=== PATIENT | male | born 1975 | race Caucasian/White ===

== ENCOUNTER 2017-09-18 19:41 | Emergency (ER) | payer SELFPAY ==
[~2017-09-18] VITALS: Ht 190.5 cm; Wt 79.4 kg
--- NOTE | 2017-09-18 20:04 | ED Back Pain ---
General Stated Complaint: LOWER BACK PAIN Source of Information: Patient, Other Exam Limitations: No Limitations History of Present Illness Date Seen by Provider: Sep 18, 2017 Time Seen by Provider: 19:58 Initial Comments Patient presents to ER by private conveyance with his significant other and a chief complaint that he's been having some low back pain since starting a new job in the [employer]. He is picking up heavy trash bags more weighing from 20-50 pounds and this is what he thinks is aggravated his pain. He does not have any significant incident that caused his pain. He does have a history of chronic back pain. He used tramadol in the past for but his doctor will not see him until the eighth. Patient's been using ibuprofen 4-6 tablets every 8 hours. He does not use Tylenol because of his hepatitis C. He is not having any incontinence of his bowels or bladder, numbness, falls or other red flag signs. Constitutional: No chills, No diaphoresis, No fever, No malaise EENTM: No ear discharge, No hearing loss, No ear pain Respiratory: No cough, No dyspnea on exertion Cardiovascular: No chest pain, No edema Gastrointestinal: No abdominal pain, No constipation, No diarrhea, No nausea Genitourinary: No discharge, No dysuria Musculoskeletal: see HPI, back pain Past Zemjuse-Uywsbb-Jtolus Hx Patient Social History Alcohol Use: Denies Use Recreational Drug Use: No Smoking Status: Current Everyday Smoker Type Used: Cigarettes Recent Foreign Travel: No Contact w/Someone Who Travel: No Physical Exam Vital Signs Capillary Refill : General Appearance: No Apparent Distress, Thin HEENT: PERRL/EOMI, Pharynx Normal Neck: Full Range of Motion, Normal Inspection, Non Tender, Supple Cardiovascular: Regular Rate, Rhythm, No Edema, Normal Peripheral Pulses Respiratory: No Accessory Muscle Use, No Respiratory Distress Peripheral Pulses: 2+ Dorsalis Pedis (R), 2+ Left Dors-Pedis (L), 2+ Radial Pulses (R), 2+ Radial Pulses (L) Back: Normal Inspection, No CVA Tenderness, Vertebral Tenderness (Lumbar) Extremity: Normal Capillary Refill, Normal Inspection, Non Tender, No Calf Tenderness, No Pedal Edema Neurologic/Psychiatric: Alert, Oriented x3, No Motor/Sensory Deficits, Normal Mood/Affect, Other (Symmetrical bilateral patellar deep tendon reflexes.) Skin: Normal Color, Warm/Dry Progress/Results/Core Measures Progress Note : Time: 20:01 Progress Note Patient declined Norflex and ketorolac. We'll going to use on his own, back brace, icy hot, appropriate doses of Tylenol and Motrin. Okay to use Tylenol with his hepatitis C if he does not have a history of cirrhosis. Follow-up with his doctor on the eighth. Departure Impression Impression: Primary Impression: Lumbago Qualified Codes: M54.5 - Low back pain Disposition: HOME, SELF-CARE Condition: Stable Departure-Patient Inst. Decision time for Depature: 20:02 Referrals: NO,LOCAL PHYSICIAN (PCP/Family) Primary Care Physician Patient Instructions: Low Back Pain (DC) Add. Discharge Instructions: Drink plenty of fluids use stretching exercises and back strengthening exercises. Use Tylenol 1000 g every 8 hours as needed. Use Motrin 800 mg every 6 hours [id number]. If you prefer you can use Naprosyn 2 capsules twice a day instead of Motrin. If you're having back spasms you can take one tablet of the Flexeril every 8 hours by mouth for this may cause some drowsiness. gym supervisor the steroids and take one tablet twice a day for the next 5 days to help bring down the swelling and inflammation in your back. Use ice packs 20 minutes on your back for every 4 hours for the first couple days. After that heating pads will be very helpful. Obtain a back brace and wear this on days that it helps. If you're not seeing improvement see your primary care physician under scheduled appointment on the eighth to discuss physical therapy and other intervention and workup. Scripts Tramadol HCl (Tramadol HCl) 50 Mg Tablet 50 MG PO Q6H Y for PAIN, #20 TAB 0 Refills Prov: RICARDO APARICIO 09/18/17 Prednisone (Prednisone) 20 Mg Tab 20 MG PO BID for 5 Days, #10 TAB 0 Refills Prov: RICARDO APARICIO 09/18/17 Cyclobenzaprine HCl (Cyclobenzaprine HCl) 10 Mg Tablet 10 MG PO Q8H Y for SPASMS, #30 TAB 0 Refills Prov: RICARDO APARICIO 09/18/17 RICARDO APARICIO Sep 18, 2017 20:04
[2017-09-18] MEDS ORDERED: CYCL10TA9 PO (20:06)
[2017-09-18] MEDS ORDERED: TRAM50TA2 PO (20:06)
[2017-09-18] MEDS ORDERED: PRD20T PO (20:06)
[2017-09-18 20:16] VITALS: BP 113/68
== END 2017-09-18 20:16 | disposition home or self-care (01) ==
LOC: EDUNIT# 19:41 → ER 19:45
DX: M54.5 Low back pain (principal); B19.20 Unspecified viral hepatitis C without hepatic coma; F17.210 Nicotine dependence, cigarettes, uncomplicated
CPT/HCPCS: 99281

== ENCOUNTER 2018-06-04 18:03 | Emergency (ER) | payer SELFPAY ==
[~2018-06-04] VITALS: Ht 190.5 cm; Wt 79.4 kg
[~2018-06-04 18:03] MED LIST: CYCL10TA9 PO; PRD20T PO; TRAM50TA2 PO
--- NOTE | 2018-06-04 18:45 | ED Fall/Injury ---
General Chief Complaint: Lower Extremity Stated Complaint: R SIDE OF LEG POSS BREAK Nursing Triage Note: PT CO OF FALL STATES R LOWER EXT, HAS CAST ON R LOWER EXT FROM FALL APPROX 6WEEKS AGO STATES FELL ON SISTERS PORCH APPROX 1 HOUR AGO Source: patient, old records Exam Limitations: no limitations History of Present Illness Date Seen by Provider: Jun 04, 2018 Time Seen by Provider: 18:15 Initial Comments This 42 year old man presents to the ER with complaints of right ankle pain after slipping and falling on his sister's porch. He has a fracture of the right ankle that is presently casted. He was casted about [address] Marsh and he states he is scheduled to have the cast removed on June 13. When he fell he struck his ankle hard on the ground and states he has pain in the prior fracture area which she rates as 10/10. He is out of tramadol which he had been using at home. He has been using ibuprofen since running out of tramadol. He has no other injuries that concern him at this time. Allergies and Home Medications Allergies Coded Allergies: cyclobenzaprine (Verified Allergy, Unknown, 06/04/18) ketorolac (Verified Allergy, Unknown, 06/04/18) Tolerates Ibuprofen naproxen (Verified Allergy, Unknown, 06/04/18) Tolerates Ibuprofen Home Medications Cyclobenzaprine HCl 10 Mg Tablet, 10 MG PO Q8H PRN for SPASMS Prescribed by: RICARDO APARICIO on 09/18/172005 Prednisone 20 Mg Tab, 20 MG PO BID Prescribed by: RICARDO APARICIO on 09/18/172005 Tramadol HCl 50 Mg Tablet, 50 MG PO Q6H PRN for PAIN Prescribed by: RICARDO PAARICIO on 09/18/172005 Tramadol HCl 50 Mg Tablet, 50 MG PO Q6H PRN for PAIN-MODERATE TO SEVERE Prescribed by: CHEVY TEJEDA on 06/04/18 1925 Patient Home Medication List Home Medication List Reviewed: Yes Review of Systems Review of Systems Constitutional: no symptoms reported Eyes: No Symptoms Reported Ears, Nose, Mouth, Throat: no symptoms reported Respiratory: no symptoms reported Cardiovascular: no symptoms reported Gastrointestinal: no symptoms reported Genitourinary: no symptoms reported Musculoskeletal: see HPI Skin: no symptoms reported Psychiatric/Neurological: No Symptoms Reported Past Navscyp-Iecjkw-Vtijza Hx Patient Social History Type Used: Cigarettes Recent Foreign Travel: No Contact w/Someone Who Travel: No Recent Infectious Disease Expo: No Recent Hopitalizations: No Seasonal Allergies Seasonal Allergies: No Past Medical History Surgeries: Yes (LEFT ELBOW) Respiratory: No Cardiac: No Neurological: No Genitourinary: No Gastrointestinal: No Musculoskeletal: Yes Fractures Endocrine: No HEENT: No Cancer: No Psychosocial: No Blood Disorders: No Physical Exam Vital Signs Vital Signs - First Documented 06/04/18 18:10 Temp 97.1 Pulse 88 Resp 18 B/P (MAP) 121/80 (94) Pulse Ox 99 Capillary Refill : Less Than 3 Seconds Height, Weight, BMI Height: 6'3.00" Weight: 175lbs. oz. 79.848590ni; BMI Method:Stated General Appearance: WD/WN, no apparent distress HEENT: normal ENT inspection Cardiovascular: regular rate, rhythm, no edema, no murmur Respiratory: lungs clear, normal breath sounds, no respiratory distress, no accessory muscle use Extremities: other (right lower extremity is in a short leg cast. There is no evidence of swelling or vascular compromise. Range of motion in the toes, capillary refill, and sensation are all intact. 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, no motor/sensory deficits, alert, normal mood/affect, oriented x 3 Skin: normal color, warm/dry Lyssa Coma Score Best Eye Response: (4) Open Spontaneously Best Verbal Response: (5) Oriented Best Motor Response: (6) Obeys Commands [place] Total: 15 Progress/Results/Core Measures Results/Orders My Orders Orders - CHEVY CAMACHO MD Ankle, Right, 3 Views (06/04/18 18:20) Tramadol Tablet (Ultram Tablet) (06/04/18 18:30) Medications Given in ED Current Medications Medications Dose Ordered Sig/Evette Route Start Time Stop Time Status Last Admin Dose Admin Tramadol HCl 50 mg ONCE ONCE PO 06/04/18 18:30 06/04/18 18:31 DC 06/04/18 18:48 50 MG Vital Signs/I&O 06/04/18 18:10 Temp 97.1 Pulse 88 Resp 18 B/P (MAP) 121/80 (94) Pulse Ox 99 Blood Pressure Mean: 94 Progress Progress Note : Progress Note Fracture was seen on the x-ray. Stage of healing is difficult to ascertain without having the prior films. I discussed with Dr. Camacho who advised pain management, nonweightbearing, and follow-up with Dr. Marsh tomorrow if pain persists. See discharge instructions. Diagnostic Imaging Diagonstic Imaging: Xray Plain Films/CT/US/NM/MRI: ankle Comments Right ankle x-ray viewed by me and report reviewed. See report below: NAME: LINH HARPER [facility] REC#: [id number] PT STATUS: REG ER : 1975 PHYSICIAN: CHEVY CAMACHO MD ADMIT DATE: 06/04/18/ER Signed Date of Exam: 06/04/18 ANKLE, RIGHT, 3 VIEWS INDICATION: Fell out of a tree 8 weeks ago and broke an ankle. Fell again today and is complaining of ankle pain. COMPARISON: No previous films are available for comparison. FINDINGS: Three views of the ankle demonstrate a fracture in the coronal plane going into the joint space of the distal tibia. A questionable small step-off is seen on the AP view but not seen on the oblique or lateral view. This could be an artifact. A cast limits bony detail. IMPRESSION: There is a fracture of the distal tibia going into the joint space. On the AP view, there is a questionable small step-off which was not seen on the other views. This may be an artifact from the cast. Dictated by: Dictated on workstation # [id number] Dict: 06/04/181845 Trans: 06/04/181858 Interpreted by: SELENA FRAGA MD Electronically signed by: SELENA FRAGA MD 06/04/181858 Departure Impression Primary Impression: Fall on same level from slipping Qualified Codes: W01.0XXA - Fall on same level from slipping, tripping and stumbling without subsequent striking against object, initial encounter Additional Impressions: Closed fracture of right distal tibia Qualified Codes: S82.301A - Unspecified fracture of lower end of right tibia, initial encounter for closed fracture Right ankle pain Qualified Codes: M25.571 - Pain in right ankle and joints of right foot Disposition: 01 HOME, SELF-CARE Condition: Improved Departure-Patient Inst. Decision time for Depature: 19:15 Referrals: NO,LOCAL PHYSICIAN (PCP/Family) Primary Care Physician Patient Instructions: Ankle Fracture (DC) Add. Discharge Instructions: Return to care if you have swelling that causes the cast to be too tight. Use Ultram as prescribed. Add Tylenol (acetaminophen) up to 1000 mg every 6 hours as needed for additional pain relief. Do not bear weight on your right foot. Continue to use crutches. If you are continuing to have increased pain tomorrow, call Dr. Marsh for further instructions. Work toward quitting smoking and reduce smoking as much as possible in the meantime. This will help improve bone healing. Do not use ibuprofen for pain control unless otherwise instructed by Dr. Marsh as it may delay bone healing. All discharge instructions reviewed with patient and/or family. Voiced understanding. Scripts Tramadol HCl (Ultram) 50 Mg Tablet 50 MG PO Q6H PRN for PAIN-MODERATE TO SEVERE, #10 TAB Prov: CHEVY CAMACHO MD 06/04/18 Copy Copies To 1: SUJIT MARSH MD, JOSHUA T MD Jun 04, 2018 18:45
--- NOTE | 2018-06-04 18:56 | Diagnostic Imaging Report ---
INDICATION: Fell out of a tree 8 weeks ago and broke an ankle. Fell again today and is complaining of ankle pain. COMPARISON: No previous films are available for comparison. FINDINGS: Three views of the ankle demonstrate a fracture in the coronal plane going into the joint space of the distal tibia. A questionable small step-off is seen on the AP view but not seen on the oblique or lateral view. This could be an artifact. A cast limits bony detail. IMPRESSION: There is a fracture of the distal tibia going into the joint space. On the AP view, there is a questionable small step-off which was not seen on the other views. This may be an artifact from the cast. Dictated by: Dictated on workstation # [id number]
[2018-06-04] MEDS ORDERED: TRAM-42 PO (19:25)
[2018-06-04 19:29] VITALS: BP 121/80
== END 2018-06-04 19:29 | disposition home or self-care (01) ==
LOC: EDUNIT# 18:03 → ER 18:04
DX: S82.301A Unspecified fracture of lower end of right tibia, initial encounter for closed fracture (principal); R40.2142 Coma scale, eyes open, spontaneous, at arrival to emergency department; R40.2252 Coma scale, best verbal response, oriented, at arrival to emergency department; R40.2362 Coma scale, best motor response, obeys commands, at arrival to emergency department; Z88.4 Allergy status to anesthetic agent; Z88.8 Allergy status to other drugs, medicaments and biological substances; Z79.52 Long term (current) use of systemic steroids; W01.198A Fall on same level from slipping, tripping and stumbling with subsequent striking against other object, initial encounter
CPT/HCPCS: 73610

== ENCOUNTER 2018-07-16 20:08 | Emergency (ER) | payer SELFPAY ==
[~2018-07-16] VITALS: Ht 191.8 cm; Wt 79.8 kg
[~2018-07-16 20:08] MED LIST changes: +TRAM-42 PO
--- NOTE | 2018-07-16 21:09 | ED Lower Extremity ---
General Chief Complaint: Lower Extremity Stated Complaint: PAIN IN RIGHT LEG,SWELLING Source: patient Exam Limitations: no limitations History of Present Illness Date Seen by Provider: Jul 16, 2018 Time Seen by Provider: 21:07 Initial Comments To ER with severe right ankle pain. He states that he jumped out of a tree about 12 weeks ago and fractured the right lower leg. He denies any pain in the calf or swelling in the calf, only pain in the ankle anteriorly. He has been casted by Dr. Rogers and this cast has been removed. However, despite the hydrocodone that he has at home pain is intolerable rated at "20" out of 10. Onset: other Severity: moderate Pain/Injury Location: right leg Method of Injury: fell Modifying Factors: Worse With Movement Allergies and Home Medications Allergies Coded Allergies: cyclobenzaprine (Verified Allergy, Unknown, 06/04/18) ketorolac (Verified Allergy, Unknown, 06/04/18) Tolerates Ibuprofen naproxen (Verified Allergy, Unknown, 06/04/18) Tolerates Ibuprofen Home Medications Cyclobenzaprine HCl 10 Mg Tablet, 10 MG PO Q8H PRN for SPASMS Prescribed by: RICARDO APARICIO on 09/18/172005 Prednisone 20 Mg Tab, 20 MG PO BID Prescribed by: RICARDO APARICIO on 09/18/172005 Tramadol HCl 50 Mg Tablet, 50 MG PO Q6H PRN for PAIN Prescribed by: RICARDO APARICIO on 09/18/172005 Tramadol HCl 50 Mg Tablet, 50 MG PO Q6H PRN for PAIN-MODERATE TO SEVERE Prescribed by: CHEVY TEJEDA on 06/04/18 1925 Patient Home Medication List Home Medication List Reviewed: Yes Review of Systems Constitutional: see HPI EENTM: see HPI Respiratory: no symptoms reported Cardiovascular: no symptoms reported Genitourinary: no symptoms reported Musculoskeletal: no symptoms reported Skin: no symptoms reported Past Ffbvxjp-Wvlhng-Elfkml Hx Patient Social History Type Used: Cigarettes Recent Foreign Travel: No Contact w/Someone Who Travel: No Recent Hopitalizations: No Seasonal Allergies Seasonal Allergies: No Past Medical History Surgeries: Yes (LEFT ELBOW) Respiratory: No Cardiac: No Neurological: No Genitourinary: No Gastrointestinal: No Musculoskeletal: Yes Fractures Endocrine: No HEENT: No Cancer: No Psychosocial: No Integumentary: No Blood Disorders: No Physical Exam Vital Signs Vital Signs - First Documented 12/25/18 21:00 Temp 98.5 Pulse 76 Resp 12 B/P (MAP) 120/82 (95) Pulse Ox 99 O2 Delivery Room Air Capillary Refill : Height, Weight, BMI Height: 6'3.00" Weight: 175lbs. oz. 79.511623bc; BMI Method:Stated General Appearance: WD/WN HEENT: PERRL/EOMI, normal ENT inspection Neck: non-tender, full range of motion Respiratory: no respiratory distress, no accessory muscle use Hips: bilateral hip non-tender, bilateral hip normal inspection, bilateral hip normal range of motion Legs: right leg other (anteriorly over the right lower leg. There is no pain or tenderness to palpation in the calf. No redness or apparent swelling. There is swelling over the lateral malleolus on the right.) Knees: bilateral knee non-tender, bilateral knee normal inspection, bilateral knee normal range of motion Ankles: bilateral ankle non-tender, bilateral ankle normal inspection, bilateral ankle normal range of motion Feet: bilateral foot non-tender, bilateral foot normal inspection, bilateral foot normal range of motion Neurologic/Psychiatric: alert, normal mood/affect, oriented x 3 Skin: normal color, warm/dry Progress/Results/Core Measures Results/Orders My Orders Orders - FOREST FELTON APRN Ketorolac Injection (Toradol Injection) (07/16/18 21:15) Tibia/Fibula, Right, 2 Views (07/16/18 21:05) Ankle, Right, 3 Views (07/16/18 21:05) Morphine Injection (Morphine Injection (07/16/18 21:15) Medications Given in ED Current Medications Medications Dose Ordered Sig/Evette Route Start Time Stop Time Status Last Admin Dose Admin Morphine Sulfate 10 mg ONCE ONCE IJ 07/16/18 21:15 07/16/18 21:16 DC 07/16/18 21:38 10 MG Vital Signs/I&O 07/16/18 21:00 Temp 98.5 Pulse 76 Resp 12 B/P (MAP) 120/82 (95) Pulse Ox 99 O2 Delivery Room Air Departure Impression Primary Impression: Fracture of tibia Disposition: HOME, SELF-CARE Condition: Stable Departure-Patient Inst. Decision time for Depature: 21:50 Referrals: NO,LOCAL PHYSICIAN (PCP/Family) Primary Care Physician Patient Instructions: Ankle Fracture Add. Discharge Instructions: 1. Call Dr. Rogers tomorrow to make an appointment to be seen. All discharge instructions reviewed with patient and/or family. Voiced understanding. Scripts Oxycodone HCl/Acetaminophen (Percocet 5-325 mg Tablet) 1 Each Tablet 1 EACH PO Q4H PRN for PAIN-MODERATE MDD 6, #10 TAB Prov: FOREST FELTON APRN 07/16/18 FOREST FELTON APRN Jul 16, 2018 21:09
[2018-07-16] MEDS ORDERED: KETOROLAC 60 MG/2 ML VIAL IM ONE (21:15)
[2018-07-16] MEDS ORDERED: morphine INJ 10 MG/ML 1ML (SYR OR VIAL) IJ ONE (21:15)
--- NOTE | 2018-07-16 21:45 | Diagnostic Imaging Report ---
INDICATION: Pain COMPARISON: 06/04/2018 and images of the right ankle dated 07/16/2018. TECHNIQUE: 4 radiographs of the right tibia and fibula dated 07/16/2018. FINDINGS: Interval removal of cast material. Previously noted distal tibial fracture is again identified. This appears to be an obliquely oriented lucency. This lucency is less prominent than the prior examination, though does still persist. There is extension to the tibial plafond with stable mild step-off of the articular surface of the tibial plafond. No additional acute fracture. No dislocation. Mild soft tissue swelling about the ankle, particularly laterally. IMPRESSION: Interval healing of previously noted distal tibial fracture with intra-articular extension to the ankle joint. However, persistent fracture lucency remains, consistent with incomplete healing. Mild step-off of the articular surface persists. No new acute fracture. Mild soft tissue swelling about the ankle. Interval removal of cast material. Dictated by: Dictated on workstation # [id number]
--- NOTE | 2018-07-16 21:48 | Diagnostic Imaging Report ---
Indication: Pain Comparison: Imaging from the same date and from 06/04/2018. Technique: 3 radiographs of the right ankle dated Findings: Interval removal of cast material. Previously noted distal tibial shaft fracture is again identified extending to the tibial plafond. Fracture lucency is not as well visualized, though still persists. Minimal step-off of the articular surface is again identified and stable. No new fracture. No dislocation. No evidence of tarsal coalition. The ankle mortise is not optimally evaluated secondary to positioning, though there is suggestion of possible asymmetry of the ankle mortise with slight widening of the medial aspect. Stable beaking of the talar neck. Impression: Interval removal of cast material with interval though incomplete healing of previously noted distal tibial fracture with intra-articular extension. Recommend continued radiographic followup to ensure complete healing. Questionable asymmetry of the ankle mortise. This may simply be positional, though can also relate to underlying ligamentous injury. Recommend clinical correlation. MRI could be obtained to further evaluate the ligamentous structures within this region. No new fracture. Dictated by: Dictated on workstation # [id number]
[2018-07-16] MEDS ORDERED: OXYC1TAB87 PO (21:51)
[2018-07-16 22:20] VITALS: BP 122/83
== END 2018-07-16 22:20 | disposition home or self-care (01) ==
LOC: EDUNIT# 20:08 → ER 20:10
DX: S82.391A Other fracture of lower end of right tibia, initial encounter for closed fracture (principal); Z88.4 Allergy status to anesthetic agent; Z88.8 Allergy status to other drugs, medicaments and biological substances; Z88.6 Allergy status to analgesic agent; Z79.52 Long term (current) use of systemic steroids; W14.XXXA Fall from tree, initial encounter
CPT/HCPCS: 73590; 73610; 96372

== ENCOUNTER 2019-03-09 14:47 | Emergency (ER) | payer SELFPAY ==
[~2019-03-09] VITALS: Ht 191.8 cm; Wt 79.8 kg
[~2019-03-09 14:47] MED LIST changes: +OXYC1TAB87 PO
--- NOTE | 2019-03-09 15:03 | ED Lower Extremity ---
General Chief Complaint: Lower Extremity Stated Complaint: R ANKLE INJ Source: patient Exam Limitations: no limitations History of Present Illness Date Seen by Provider: Mar 09, 2019 Time Seen by Provider: 15:02 Initial Comments To ER with right ankle injury. Complains of pain over the right ankle after getting pinned between a pallet and a forklift this morning. History of previous fracture to this extremity. He is ambulatory into the emergency room. Onset: this morning Severity: moderate Pain/Injury Location: right ankle Method of Injury: fell Modifying Factors: Worse With Movement Allergies and Home Medications Allergies Coded Allergies: cyclobenzaprine (Verified Allergy, Unknown, 06/04/18) ketorolac (Verified Allergy, Unknown, 06/04/18) Tolerates Ibuprofen naproxen (Verified Allergy, Unknown, 06/04/18) Tolerates Ibuprofen Home Medications Cyclobenzaprine HCl 10 Mg Tablet, 10 MG PO Q8H PRN for SPASMS Prescribed by: RICARDO APARICIO on 09/18/172005 Oxycodone HCl/Acetaminophen 1 Each Tablet, 1 EACH PO Q4H PRN for PAIN-MODERATE Prescribed by: FOREST FELTON on 07/16/182150 Prednisone 20 Mg Tab, 20 MG PO BID Prescribed by: RICARDO APARICIO on 09/18/172005 Tramadol HCl 50 Mg Tablet, 50 MG PO Q6H PRN for PAIN Prescribed by: RICARDO APARICIO on 09/18/172005 Tramadol HCl 50 Mg Tablet, 50 MG PO Q6H PRN for PAIN-MODERATE TO SEVERE Prescribed by: CHEVY TEJEDA on 06/04/18 1925 Patient Home Medication List Home Medication List Reviewed: Yes Review of Systems Constitutional: see HPI EENTM: see HPI Respiratory: no symptoms reported Cardiovascular: no symptoms reported Genitourinary: no symptoms reported Musculoskeletal: see HPI Skin: no symptoms reported Psychiatric/Neurological: No Symptoms Reported Past Ibautjz-Bmobyg-Wvdbah Hx Patient Social History Alcohol Use: Denies Use Recreational Drug Use: No Smoking Status: Current Everyday Smoker Type Used: Cigarettes 2nd Hand Smoke Exposure: No Recent Foreign Travel: No Contact w/Someone Who Travel: No Recent Hopitalizations: No Physical Abuse: No Sexual Abuse: No Mistreated: No Fear: No Seasonal Allergies Seasonal Allergies: No Past Medical History Surgeries: Yes (LEFT ELBOW) Respiratory: No Cardiac: No Neurological: No Genitourinary: No Gastrointestinal: No Musculoskeletal: Yes Fractures Endocrine: No HEENT: No Cancer: No Psychosocial: No Integumentary: No Blood Disorders: No Physical Exam Vital Signs Vital Signs - First Documented 03/09/19 14:55 Temp 97.6 Pulse 89 Resp 18 B/P (MAP) 123/97 (106) Pulse Ox 97 O2 Delivery Room Air Capillary Refill : Height, Weight, BMI Height: 6'3.50" Weight: 176lbs. oz. 79.541316rr; BMI Method:Stated General Appearance: WD/WN, no apparent distress HEENT: PERRL/EOMI, normal ENT inspection Respiratory: no respiratory distress, no accessory muscle use Hips: bilateral hip non-tender, bilateral hip normal inspection, bilateral hip normal range of motion Legs: bilateral leg non-tender, bilateral leg normal inspection, bilateral leg normal range of motion Knees: bilateral knee non-tender, bilateral knee normal inspection, bilateral knee normal range of motion Ankles: right ankle pain, right ankle soft tissue tenderness, right ankle other (strong dorsalis pedis pulse. Ambulatory to fast track to without use of assistive device. There is no swelling no deformity no erythema no ecchymosis.) Feet: bilateral foot non-tender, bilateral foot normal inspection, bilateral foot normal range of motion Neurologic/Psychiatric: alert, normal mood/affect, oriented x 3 Skin: normal color, warm/dry Progress/Results/Core Measures Results/Orders My Orders Orders - FOREST FELTON APRN Ankle, Right, 3 Views (03/09/19 15:01) Vital Signs/I&O 03/09/19 14:55 Temp 97.6 Pulse 89 Resp 18 B/P (MAP) 123/97 (106) Pulse Ox 97 O2 Delivery Room Air Departure Impression Primary Impression: Contusion of ankle Qualified Codes: S90.01XA - Contusion of right ankle, initial encounter Disposition: HOME, SELF-CARE Condition: Stable Departure-Patient Inst. Decision time for Depature: 15:05 Referrals: NO,LOCAL PHYSICIAN (PCP/Family) Primary Care Physician Patient Instructions: Contusion (DC) Add. Discharge Instructions: 1. Tylenol and ibuprofen for pain control. Return to ER for any concerns. All discharge instructions reviewed with patient and/or family. Voiced understanding. FOREST FELTON APRN Mar 09, 2019 15:03
--- NOTE | 2019-03-09 15:59 | Diagnostic Imaging Report ---
INDICATION: Smashed ankle between pallets and forklift. Right ankle pain. EXAMINATION: Right ankle, 03/09/2019. COMPARISON: 07/16/2018. FINDINGS: Three views of the ankle. Previous distal tibial fracture persists. Some of the fracture line demonstrates interval healing along the distal diaphysis. There is some residual lucency; however, the metadiaphysis extending into the joint space is similar to previous. A mild step-off deformity at the fracture line at the tibial plafond is stable. Minimal widening of the medial ankle mortise is possible. There is mild soft tissue swelling about the ankle. Spurring anterior to tibiotalar joint space and anterior to the talus. There are no dislocations or definite acute fractures appreciated. IMPRESSION: 1. Chronic changes, as above, with mild interval healing of the distal tibial fracture compared to previous but incomplete healing is noted. 2. Questioned mild widening in the medial ankle mortise. A definite acute fracture is not seen. Dictated by: Dictated on workstation # [id number]
[2019-03-09 16:17] VITALS: BP 123/97
== END 2019-03-09 16:09 | disposition home or self-care (01) ==
LOC: EDUNIT# 14:47 → ER 14:48
DX: S90.01XA Contusion of right ankle, initial encounter (principal); F17.210 Nicotine dependence, cigarettes, uncomplicated; Z88.8 Allergy status to other drugs, medicaments and biological substances; Z87.81 Personal history of (healed) traumatic fracture; Z88.6 Allergy status to analgesic agent; Z79.52 Long term (current) use of systemic steroids; W23.1XXA Caught, crushed, jammed, or pinched between stationary objects, initial encounter
CPT/HCPCS: 73610; 99283